=== PATIENT | male | born 1960 | race Caucasian/White ===

== ENCOUNTER 2023-09-25 20:05 | Emergency (ER) | payer MEDICAID ==
[~2023-09-25] VITALS: Ht 182.9 cm; Wt 157.4 kg
[2023-09-25 20:16] VITALS: BP_SYST 140; PULSE 77; RESP 20; TEMP 98.1; O2SAT 94
[2023-09-25] MEDS ORDERED: DIPH35CR TP (22:43)
[2023-09-25] MEDS ORDERED: CEPH-548 PO (22:43)
[2023-09-25 23:00] VITALS: BP_SYST 158; PULSE 71; RESP 21; TEMP 97.9; O2SAT 94
== END 2023-09-25 23:00 | disposition home or self-care (01) ==
LOC: SED 20:05
DX: R60.0 Localized edema (principal); L03.116 Cellulitis of left lower limb; I10 Essential (primary) hypertension; Z91.041 Radiographic dye allergy status; Z91.013 Allergy to seafood; Z79.899 Other long term (current) drug therapy
CPT/HCPCS: 93970; 99284